=== PATIENT | male | born 1980 | race Caucasian/White ===

== ENCOUNTER 2020-01-05 10:30 | Emergency (ER) | payer MEDICAID ==
[~2020-01-05] VITALS: Ht 172.7 cm; Wt 77.6 kg
[~2020-01-05 10:30] MED LIST: DOCU-272 RC; NO HOME MEDS; POLY119P2 PO
[2020-01-05 10:41] VITALS: BP 107/71
--- NOTE | 2020-01-05 11:21 | NUR ---
Patient seen and assessed by provider.
== END 2020-01-05 11:21 | disposition home or self-care (01) ==
LOC: ER 10:31
DX: Z00.8 Encounter for other general examination (principal); Z79.899 Other long term (current) drug therapy
CPT/HCPCS: 99281

== ENCOUNTER 2020-08-14 16:53 | Emergency (ER) | payer MEDICAID ==
[~2020-08-14] VITALS: Ht 162.6 cm; Wt 65.0 kg
--- NOTE | 2020-08-14 17:07 | NUR ---
LEORA Brito with pt for assessment.
[2020-08-14] MEDS ORDERED: LIDOcaine 1% 30ml preserv. free vial IJ ONE (18:25)
[2020-08-14] MEDS ORDERED: TETanus/Pertussis (Acell)/Diphther VAC/PF (Tdap-Adult) 0.5ml syringe IMVAC ONE (18:25)
[2020-08-14 18:35] LABS: BASOPHILS # (AUTO) 0.1 X10'3 (0-0.2); BASOPHILS % (AUTO) 0.7 % (0-1); EOSINOPHILS # (AUTO) 0.1 X10'3 (0-0.9); EOSINOPHILS % (AUTO) 1.1 % (0-6); HEMOGLOBIN 12.7 g/dl (14.0-17.9); LYMPHOCYTES # (AUTO) 1.5 X10'3 (1.1-4.8); LYMPHOCYTES % (AUTO) 12.5 % (21-51); MEAN CORPUSCULAR HEMOGLOBIN 30.6 PG (27.0-31.0); MEAN CORPUSCULAR HGB CONC 32.6 g/dL (33.0-36.5); MEAN CORPUSCULAR VOLUME 93.9 FL (78-98); MEAN PLATELET VOLUME 7.9 FL (7.4-10.4); MONOCYTES # (AUTO) 1.4 X10'3 (0-0.9); MONOCYTES % (AUTO) 11.9 % (2-12); NEUTROPHILS # (AUTO) 8.7 X10'3 (1.8-7.7); NEUTROPHILS % (AUTO) 73.8 % (42-75); PLATELET COUNT 454 X10'3 (140-440); RED BLOOD COUNT 4.15 X10'6 (4.70-6.10); RED CELL DISTRIBUTION WIDTH 13.7 % (11.5-14.5); WHITE BLOOD COUNT 11.8 X10'3 (4.5-11.0)
[2020-08-14] MEDS ORDERED: CEPH-585 PO (18:48)
[2020-08-14] MEDS ORDERED: SULF1TAB49 PO (18:48)
[2020-08-14 18:51] LABS: ALANINE AMINOTRANSFERASE 19 U/L (12-78); ALBUMIN 3.2 G/DL (3.4-5.0); ALBUMIN/GLOBULIN RATIO 0.8 (1.1-1.5); ALKALINE PHOSPHATASE 73 IU/L (46-116); ANION GAP 9 (8-16); ASPARTATE AMINO TRANSFERASE 13 U/L (10-37); BILIRUBIN,TOTAL 0.4 MG/DL (0.1-1.0); BLOOD UREA NITROGEN 8 MG/DL (7-18); BUN/CREATININE RATIO 8.4 (5.4-32.0); CALCIUM 9.2 MG/DL (8.5-10.1); CHLORIDE 102 MMOL/L (99-107); CREATININE 0.95 MG/DL (0.60-1.10); GLUCOSE 111 MG/DL (70-104); POTASSIUM 3.9 MMOL/L (3.5-5.1); SODIUM 137 MMOL/L (135-145); TOTAL CARBON DIOXIDE 26.5 MMOL/L (24-32); TOTAL PROTEIN 7.1 G/DL (6.4-8.2); eGFR 87 ML/MIN
[2020-08-14] MEDS: sulfamethoxazole/trimethoprim DS (800/160mg) tablet PO ONE ×2 (18:51→18:55)
[2020-08-14] MEDS: cephalexin 250mg capsule PO ONE ×2 (18:51→18:54)
[2020-08-14 19:01] VITALS: BP 151/92
--- NOTE | 2020-08-15 18:15 | NUR ---
PT CALLED STATING THAT HE LOST HER RX FOR HIS ABSCESS. PROVIDER LEORA DAVE NOTIFIED AND GAVE PERMISSION TO CALL THE MEDICATIONS IN TO PT'S PHARMACY/ PT REQUESTED THAT MEDS BE CALLED INTO [facility] [address]; KEFLEX 500MG PO, 2 CAP BID x7 DAYS, #28, BACTRIM DS 1 TAB Q12 HRS x7 DAYS, #14 PT REQUESTED.
== END 2020-08-14 19:02 ==
LOC: ER 16:54
DX: L03.114 Cellulitis of left upper limb (principal); L02.414 Cutaneous abscess of left upper limb; F15.10 Other stimulant abuse, uncomplicated
CPT/HCPCS: 36415; 76882; 80053; 84145; 85025; 90471; 90715; 99284

== ENCOUNTER 2020-09-30 15:15 | Emergency (ER) | payer MEDICAID ==
[~2020-09-30] VITALS: Ht 170.2 cm; Wt 65.9 kg
[2020-09-30] MEDS ORDERED: normal saline 1000ML IV soln IVB ONE (17:15)
[2020-09-30 17:32] LABS: BASOPHILS # (AUTO) 0.1 X10'3 (0-0.2); EOSINOPHILS % (AUTO) 0.3 % (0-6); HEMATOCRIT 43.4 % (42.0-52.0); HEMOGLOBIN 14.6 g/dl (14.0-17.9); LYMPHOCYTES # (AUTO) 1.5 X10'3 (1.1-4.8); LYMPHOCYTES % (AUTO) 10.6 % (21-51); MEAN CORPUSCULAR HEMOGLOBIN 31.2 PG (27.0-31.0); MEAN CORPUSCULAR HGB CONC 33.7 g/dL (33.0-36.5); MEAN CORPUSCULAR VOLUME 92.4 FL (78-98); MONOCYTES # (AUTO) 1.1 X10'3 (0-0.9); MONOCYTES % (AUTO) 7.7 % (2-12); NEUTROPHILS # (AUTO) 11.7 X10'3 (1.8-7.7); NEUTROPHILS % (AUTO) 80.4 % (42-75); PLATELET COUNT 479 X10'3 (140-440); RED BLOOD COUNT 4.69 X10'6 (4.70-6.10); WHITE BLOOD COUNT 14.6 X10'3 (4.5-11.0)
[2020-09-30 17:38] LABS: ALANINE AMINOTRANSFERASE 741 U/L (12-78); ALBUMIN 3.7 G/DL (3.4-5.0); ALBUMIN/GLOBULIN RATIO 0.7 (1.1-1.5); ALKALINE PHOSPHATASE 142 IU/L (46-116); ANION GAP 9 (8-16); ASPARTATE AMINO TRANSFERASE 184 U/L (10-37); BILIRUBIN,TOTAL 0.9 MG/DL (0.1-1.0); BLOOD UREA NITROGEN 16 MG/DL (7-18); BUN/CREATININE RATIO 13.6 (5.4-32.0); CALCIUM 9.1 MG/DL (8.5-10.1); CHLORIDE 100 MMOL/L (99-107); CREATININE 1.18 MG/DL (0.60-1.10); GLUCOSE 142 MG/DL (70-104); POTASSIUM 4.4 MMOL/L (3.5-5.1); SODIUM 136 MMOL/L (135-145); TOTAL CARBON DIOXIDE 27.4 MMOL/L (24-32); TOTAL PROTEIN 8.7 G/DL (6.4-8.2); eGFR 68 ML/MIN
[2020-09-30 18:57] VITALS: BP 141/89
== END 2020-09-30 17:56 | disposition short-term general hospital (02) ==
LOC: ER 15:15
DX: S06.5X9A Traumatic subdural hemorrhage with loss of consciousness of unspecified duration, initial encounter (principal); S02.40DA Maxillary fracture, left side, initial encounter for closed fracture; Z20.822 Contact with and (suspected) exposure to COVID-19; X58.XXXA Exposure to other specified factors, initial encounter; Y93.89 Activity, other specified; Y92.89 Other specified places as the place of occurrence of the external cause; Y99.8 Other external cause status
CPT/HCPCS: 36415; 70450; 70486; 72125; 80053; 85025; 85610; 87635; 96360; 99285; C9803; J7030

== ENCOUNTER 2020-11-15 22:10 | Emergency (ER) | payer MEDICAID ==
[~2020-11-15] VITALS: Ht 172.7 cm; Wt 65.5 kg
[~2020-11-15 22:10] MED LIST changes: -DOCU-272 RC; -POLY119P2 PO
[2020-11-15 22:22] VITALS: BP 123/72
[2020-11-16] MEDS ORDERED: SULF1TAB49 PO (00:44)
== END 2020-11-16 02:55 | disposition left against medical advice (07) ==
LOC: ER 22:11
DX: L02.413 Cutaneous abscess of right upper limb (principal); Z53.21 Procedure and treatment not carried out due to patient leaving prior to being seen by health care provider

== ENCOUNTER 2025-03-16 08:04 | Emergency (ER) | payer BC, MEDICAID ==
[~2025-03-16] VITALS: Ht 167.6 cm; Wt 78.3 kg
[2025-03-16] MEDS ORDERED: AMOX500C2 PO (09:03)
--- NOTE | 2025-03-16 09:06 | Physician Documentation ---
HPI ~ General Chief Complaint: Tooth Problem Stated Complaint: TOOTH ABSCESS Time Seen by MD: 08:31 Primary Medical Doctor: NONE History of Present Illness HPI Comment 44-year-old male presents with a complaint of increased tooth pain on the right upper region of his oral cavity. States he has developed pain and swelling in his molar region. Denies any focal areas which I suspect there maybe a [id number] abscess Medication Reconciliation Allergies: Coded Allergies: No Known Allergies (Unverified , 03/16/25) Scheduled Amoxicillin Trihydrate* (Amoxicillin*), 2 CAP PO Q12H Miscellaneous Medications Home Med List (No Home Medications), (Reported) Past Medical History Past Medical History: Hernia Past Surgical History: no surgical history Alcohol Use: None Drug Use: methamphetamine Lives with: Spouse Lives In: Home Occupation: employed Review of Systems All Other Systems at this time: Reviewed and Negative ROS As stated above in the HPI, otherwise all systems are reviewed and negative. Physical Exam Vital Signs: Temperature: 97.2, Source: Temporal, Heart Rate: 62, Respiratory Rate: 16, BP: 126/80, Pulse Oximetry: 100, Weight: 78.300 Oxygen Flow Rate: 0 Physical Exam General: Alert, no apparent distress. HEENT: PERRL, EOMI, no injection, moist mucous membranes. Erythema and swelling in the right oral cavity Neck: Full range of motion. Psychiatric: Normal mood and affect. Skin: Normal color, warm and dry. No edema, no ecchymosis. Progress Results/Orders Results/Orders Completed Orders - AMADO COLLINS NP Ketorolac Trometh 30mg/Ml Vial (Toradol (03/16/25 09:00) Vital Signs 03/16/25 08:07 Temp 97.2 Pulse 62 Resp 16 B/P (MAP) 126/80 Pulse Ox 100 O2 Flow Rate 0 Medical Decision Making Additional information obtaine: N/A Findings He will treat this patient empirically for a suspected tooth abscess and development. He is hemodynamically stable. Going to treating DC for outpatient therapy Differential Dx:Considerations: Include: Alveolar fracture, Alveolar osteitis, ANUG, Facial Cellulitis, Periapical abscess, Peridontal abscess, Post-extraction bleeding, Pulpitis, Tooth avulsion, Tooth eruption, Tooth Fracture, Trigeminal neuralgia, Tooth subluxation, Other Departure Disposition: 01 HOME / SELF CARE / HOMELESS Impression: Primary Impression: Toothache Additional Impression: Dental caries Condition: Improved Discharge Instructions: Dental Caries, Adult Referrals: NO PRIMARY CARE PROVIDER (PCP) Prescriptions Amoxicillin Trihydrate* (Amoxicillin*) 500 Mg Capsule 2 CAP PO Q12H for 10 Days, #40 CAP Prov: AMADO COLLINS NP 03/16/25 Education Educated: Patient Educated regarding: diagnosis Signature Scribe Signature: e Attestation: Scribed for Amado Collins Music Composer by Amado Garcia NP . 03/16/25 09:05 AMADO COLLINS NP Mar 16, 2025 09:06
[2025-03-16 09:24] VITALS: BP 135/98; PULSE 78; TEMP 97.2; O2SAT 97
[2025-03-16 09:37] VITALS: RESP 18
[2025-03-16] MEDS: ketorolac trometh 30MG/ML vial 30 MG/ML VIAL IM ONE (09:37)
== END 2025-03-16 09:39 | disposition home or self-care (01) ==
LOC: ER 08:04
DX: K02.9 Dental caries, unspecified (principal); F15.90 Other stimulant use, unspecified, uncomplicated
CPT/HCPCS: 96372; 99283; J1885